=== PATIENT | female | born 1990 | race American Indian/Alaskan Native ===

== ENCOUNTER 2017-09-19 10:57 | Emergency (ER) | payer SELFPAY ==
[~2017-09-19] VITALS: Ht 172.7 cm; Wt 59.0 kg
[2017-09-19 11:06] VITALS: BP 158/96
== END 2017-09-19 14:00 | disposition home or self-care (01) ==
LOC: ER 10:57
DX: Z00.00 Encounter for general adult medical examination without abnormal findings (principal); F12.10 Cannabis abuse, uncomplicated; F17.200 Nicotine dependence, unspecified, uncomplicated; Z48.817 Encounter for surgical aftercare following surgery on the skin and subcutaneous tissue; Z91.018 Allergy to other foods
CPT/HCPCS: 99281

== ENCOUNTER 2018-11-21 12:43 | Emergency (ER) | payer SELFPAY ==
[~2018-11-21] VITALS: Ht 188 cm; Wt 70.0 kg
[2018-11-21] MEDS ORDERED: ONDANSETRON 4MG ODT PO STA (13:13)
[2018-11-21 13:56] LABS: HEMATOCRIT. 39.8 % (36.0-48.0); HEMOGLOBIN. 13.4 g/dL (12.0-16.0); MEAN CORPUSCULAR HEMOGLOBIN 35.2 pg (28.0-32.0); MEAN CORPUSCULAR VOLUME 104.4 fL (81.0-99.0); MEAN PLATELET VOLUME 8.9 fl (7.4-10.4); PLATELET 299 x1000/uL (130-400); RED BLOOD CELL COUNT 3.81 mill/uL (4.2-5.4)
[2018-11-21 14:01] LABS: CHLORIDE 94 mEq/L (98-107)
[2018-11-21 14:24] LABS: PLATELET ESTIMATE NORMAL
[2018-11-21 15:54] VITALS: BP 131/76
== END 2018-11-21 16:00 | disposition home or self-care (01) ==
LOC: ER 12:43
DX: R11.2 Nausea with vomiting, unspecified (principal); F19.10 Other psychoactive substance abuse, uncomplicated; F17.200 Nicotine dependence, unspecified, uncomplicated; Z91.018 Allergy to other foods
CPT/HCPCS: 36415; 80053; 85025; 99283; Q0162

== ENCOUNTER → 2019-08-08 | Emergency (ER) | payer MEDICAID ==
[~2019-08-08] VITALS: Ht 172.7 cm; Wt 76.2 kg
[~2019-08-08] MED LIST: KETOROLAC 30MG/ML VIAL IM ONE
== END | disposition home or self-care (01) ==
LOC: ER 04:17
DX: S73.006A Unspecified dislocation of unspecified hip, initial encounter (principal); F12.10 Cannabis abuse, uncomplicated; F14.10 Cocaine abuse, uncomplicated; Z91.018 Allergy to other foods; X58.XXXA Exposure to other specified factors, initial encounter; Y93.9 Activity, unspecified; Y92.9 Unspecified place or not applicable
CPT/HCPCS: 99283; J1885